=== PATIENT | female | born 1940 | race Caucasian/White ===

== ENCOUNTER 2017-08-12 00:47 | Emergency (ER) | payer MEDICARE ==
[2017-08-12] MEDS ORDERED: ORPHENADRINE CITRATE 30 MG/ML ML ONE (01:20)
[2017-08-12] MEDS ORDERED: MORPHINE SULFATE 8 MG/ML VIAL ONE (01:21)
[2017-08-12 01:43] LABS: BASOPHILS % (AUTO) 0.6 % (0.0-5.0); EOSINOPHILS % (AUTO) 1.9 % (0.0-8.0); HEMATOCRIT 37.4 % (36-48); LYMPHOCYTES % (AUTO) 49.1 % (21.0-51.0); MEAN CORPUSCULAR HEMOGLOBIN 27.7 pg (27.0-33.0); MEAN CORPUSCULAR HGB CONC 34.1 g/dL (32.0-36.0); MEAN CORPUSCULAR VOLUME 81.3 fL (79-99); MONOCYTES % (AUTO) 5.5 % (3.0-13.0); NEUTROPHILS % (AUTO) 42.9 % (40.0-77.0); PLATELET COUNT (AUTO) 219 K/uL (130-400); RED CELL DISTRIBUTION WIDTH 13.6 % (11.0-15.5); WHITE BLOOD COUNT (AUTO) 8.5 K/uL (4.8-10.8)
[2017-08-12 01:52] LABS: CREATININE 1.5 mg/dL (0.5-1.5); POTASSIUM 3.5 mmol/L (3.5-5.1)
[2017-08-12 01:57] LABS: ALBUMIN 3.6 g/dL (3.5-5.0); BILIRUBIN,TOTAL 0.3 mg/dL (0.2-1.0)
[2017-08-12 02:26] LABS: APPEARANCE,URINE Cloudy (CLEAR); BILIRUBIN,URINE Negative (NEGATIVE); COLOR,URINE Yellow (YELLOW); GLUCOSE, URINE (UA) Negative (NEGATIVE); KETONES,URINE Negative (NEGATIVE); LEUKOCYTE ESTERASE ,URINE Large (NEGATIVE); NITRATE,URINE Negative (NEGATIVE); OCCULT BLOOD,URINE Nonhemolyzed Trace (NEGATIVE); PH,URINE 6.5 (5.0-8.0); PROTEIN,URINE Trace (NEGATIVE)
[2017-08-12 02:51] LABS: BACTERIA,URINE Many /HPF (None Seen); SQUAMOUS EPITHELIAL CELL,UR Few /LPF (0-2); WBC,URINE 51-100 /HPF (0-1)
[2017-08-12 02:52] LABS: AMORPHOUS SEDIMENT,UR Few /LPF (None Seen)
[2017-08-12] MEDS ORDERED: CLARITHROMYCIN 500 MG TABLET ONE (03:14)
== END 2017-08-12 04:28 | disposition home or self-care (01) ==
LOC: EDH 00:47
DX: N30.00 Acute cystitis without hematuria (principal); M54.16 Radiculopathy, lumbar region; I10 Essential (primary) hypertension; Z88.0 Allergy status to penicillin; Z88.6 Allergy status to analgesic agent
CPT/HCPCS: 36415; 74176; 80053; 81001; 85025; 87088; 87186; 96372 ×2; 99285; J2270; J2360

== ENCOUNTER 2019-05-06 17:26 | Emergency (ER) | payer MEDICARE ==
[2019-05-06] MEDS ORDERED: ASPIRIN 325 MG TABLET ONE (18:37)
[2019-05-06 18:45] LABS: BASOPHILS % (AUTO) 0.9 % (0.0-5.0); EOSINOPHILS % (AUTO) 0.8 % (0.0-8.0); HEMATOCRIT 37.9 % (36-48); LYMPHOCYTES % (AUTO) 27.9 % (21.0-51.0); MEAN CORPUSCULAR HEMOGLOBIN 28.9 pg (27.0-33.0); MEAN CORPUSCULAR HGB CONC 34.8 g/dL (32.0-36.0); MEAN CORPUSCULAR VOLUME 82.9 fL (79-99); MONOCYTES % (AUTO) 8.8 % (3.0-13.0); NEUTROPHILS % (AUTO) 61.6 % (40.0-77.0); PLATELET COUNT (AUTO) 282 K/uL (130-400); RED BLOOD CELL COUNT(AUTO) 4.57 MIL/uL (4.00-5.50); RED CELL DISTRIBUTION WIDTH 13.7 % (11.0-15.5); WHITE BLOOD COUNT (AUTO) 9.1 K/uL (4.8-10.8)
[2019-05-06 18:55] LABS: POTASSIUM 3.2 mmol/L (3.5-5.1)
[2019-05-06 18:57] LABS: INR 0.91 (0.85-1.15); PARTIAL THROMBOPLASTIN TIME 24.5 SEC (26.3-35.5); PROTHROMBIN TIME 9.6 SEC (9.6-11.6)
[2019-05-06 19:00] LABS: ALBUMIN 3.8 g/dL (3.5-5.0); BILIRUBIN,TOTAL 0.6 mg/dL (0.2-1.0); TOTAL PROTEIN, SERUM 7.1 g/dL (6.0-8.3)
[2019-05-06 19:01] LABS: B-TYPE NATRIURETIC PEPTIDE 78 pg/mL (0-100)
== END 2019-05-06 22:30 | disposition home or self-care (01) ==
LOC: EDH 17:26
DX: R07.89 Other chest pain (principal); R06.02 Shortness of breath; I10 Essential (primary) hypertension; Z88.0 Allergy status to penicillin; Z88.8 Allergy status to other drugs, medicaments and biological substances
CPT/HCPCS: 36415; 71045; 80053; 82550; 83880; 84484; 85025; 85378; 85610; 85730; 93005

== ENCOUNTER → 2020-10-23 | Outpatient (CLI) | payer MEDICARE ==
[~2020-10-23] VITALS: Ht 160 cm; Wt 64.0 kg
[~2020-10-23] MED LIST: AMLO-258 PO; ASPI-556 PO; CELE200C PO; FURO20TA4 PO; LOSA1TAB42 PO; PRAV40TA3 PO; REGADENOSON 0.4 MG/5 ML PF SYG IVP SCH
== END | disposition home or self-care (01) ==
LOC: SHCH 08:00
PROVIDERS: ATTEND Internal Medicine Cardiovascular Disease
DX: I25.10 Atherosclerotic heart disease of native coronary artery without angina pectoris (principal)
CPT/HCPCS: 78452; 93017; 96374; A9500 ×2

== ENCOUNTER → 2023-05-01 | Outpatient (CLI) | payer OTHER ==
[~2023-05-01] MED LIST changes: -REGADENOSON 0.4 MG/5 ML PF SYG IVP SCH
== END | disposition home or self-care (01) ==
LOC: RAH 13:41
PROVIDERS: ATTEND Internal Medicine Cardiovascular Disease
DX: Z13.6 Encounter for screening for cardiovascular disorders (principal)
CPT/HCPCS: 75571

== ENCOUNTER → 2023-05-21 | Outpatient (CLI) | payer MEDICARE | END | disposition home or self-care (01) | LOC: SHCH 14:33 | PROVIDERS: ATTEND Internal Medicine Cardiovascular Disease | DX: I08.1 Rheumatic disorders of both mitral and tricuspid valves (principal); R06.00 Dyspnea, unspecified; I10 Essential (primary) hypertension; E78.5 Hyperlipidemia, unspecified; I27.20 Pulmonary hypertension, unspecified | CPT/HCPCS: 93306 ==

== ENCOUNTER 2023-08-08 07:13 | Observation (INO) | payer MEDICARE ==
[2023-08-06 12:20] VITALS: BP 166/96; PULSE 63; RESP 16
[2023-08-06 12:27] LABS: BASOPHILS # (AUTO) 0.06 K/uL (0.00-0.20); BASOPHILS % (AUTO) 0.7 % (0.0-5.0); EOSINOPHILS % (AUTO) 2.2 % (0.0-8.0); HEMATOCRIT 38.9 % (36-48); IMMATURE GRANULOCYTE ABSOLUTE 0.02 K/uL (0-1); LYMPHOCYTES # (AUTO) 3.5 K/uL (1.0-4.8); LYMPHOCYTES % (AUTO) 38.7 % (21.0-51.0); MEAN CORPUSCULAR HEMOGLOBIN 28.7 pg (27.0-33.0); MEAN CORPUSCULAR HGB CONC 34.2 g/dL (32.0-36.0); MEAN CORPUSCULAR VOLUME 83.8 fL (79-99); MONOCYTES # (AUTO) 0.6 K/uL (0.1-1.0); NEUTROPHILS # (AUTO) 4.6 K/uL (1.8-7.7); NEUTROPHILS % (AUTO) 51.2 % (40.0-77.0); PLATELET COUNT (AUTO) 328 K/uL (130-400); RED BLOOD CELL COUNT(AUTO) 4.64 MIL/uL (4.00-5.50); RED CELL DISTRIBUTION WIDTH 13.1 % (11.0-15.5)
[2023-08-06 12:36] LABS: APPEARANCE,URINE CLEAR (CLEAR); BILIRUBIN,URINE NEGATIVE (NEGATIVE); COLOR,URINE COLORLESS (YELLOW); GLUCOSE, URINE (UA) NEGATIVE (NEGATIVE); KETONES,URINE NEGATIVE (NEGATIVE); LEUKOCYTE ESTERASE ,URINE NEGATIVE Leu/uL (NEGATIVE); NITRATE,URINE NEGATIVE (NEGATIVE); OCCULT BLOOD,URINE NEGATIVE (NEGATIVE); PROTEIN,URINE NEGATIVE (NEGATIVE); UROBILINOGEN,URINE 0.2 mg/dL (0.2-1.0)
[2023-08-06 12:38] LABS: POTASSIUM 4.1 mmol/L (3.5-5.1)
[2023-08-06 12:48] LABS: ADD UA MICROSCOPIC NO
[2023-08-06 12:55] LABS: B-TYPE NATRIURETIC PEPTIDE 75 pg/mL (0-100)
[2023-08-06 13:15] LABS: INR < 0.93 (0.85-1.15); PROTHROMBIN TIME 10.2 SEC (9.6-11.6)
[2023-08-06 13:16] LABS: PARTIAL THROMBOPLASTIN TIME 27.2 SEC (26.3-35.5)
[~2023-08-08] VITALS: Ht 157.5 cm; Wt 59.0 kg
[2023-08-08] VITALS (17 sets, daily range): BP systolic 88–146; BP diastolic 39–87; PULSE 55–78; RESP 12–20; O2SAT 97–99
[~2023-08-08 07:13] MED LIST changes: -CELE200C PO; +CYAN250014 PO; +DEXL30CA3 PO; -FURO20TA4 PO; +NITR0.4T50 SL; +POTASSIUM PO; +TRAM50TA4 PO; +VIT1CAPS47 PO; +VITAMIN D3 PO
[2023-08-08] MEDS ORDERED: DEXL60CA3 PO (08:33)
[2023-08-08] MEDS ORDERED: METO-408 PO (08:38)
[2023-08-08] MEDS ORDERED: 0.9%NACL 1000ML 1,000 ML IV ONE (08:41)
[2023-08-08] MEDS ORDERED: IOHEXOL 350 MG/ML 100ML INFUS..BTL IV ONE (10:07)
[2023-08-08] MEDS ORDERED: LIDOCAINE HCL 400MG/20ML VIAL ONE (10:07)
[2023-08-08] MEDS ORDERED: IOHEXOL-350 50ML VIAL IV ONE (10:07)
[2023-08-08] MEDS ORDERED: MIDAZOLAM HCL 1 MG/ML 2ML VIAL ONE (10:30)
[2023-08-08] MEDS ORDERED: HEPARIN 10,000 UNIT/10ML (1,000 UNIT/ML) VIAL ONE (10:41)
[2023-08-08] MEDS ORDERED: ASPIRIN 325MG EC TAB PO ONE (10:59)
[2023-08-08] MEDS ORDERED: CLOPIDOGREL 300MG TAB ONE (10:59)
[2023-08-08] MEDS ORDERED: TEMAZEPAM 30 MG CAP PO PRN (11:30)
[2023-08-08] MEDS ORDERED: ONDANSETRON 4MG INJ IVP PRN (11:30)
[2023-08-08] MEDS ORDERED: NITROGLYCERIN 50MG/D5W 250ML 1 BOT IV PRN (11:30)
[2023-08-08] MEDS ORDERED: ONDANSETRON 4MG INJ IVP SCH (11:30)
[2023-08-08] MEDS ORDERED: MORPHINE 5 MG/ML VIAL (5MG OR GREATER DOSE) IVP SCH (11:30)
[2023-08-09 04:00] VITALS: BP 141/68; PULSE 69; RESP 20
[2023-08-09 06:06] LABS: HEMATOCRIT 36.1 % (36-48); MEAN CORPUSCULAR HGB CONC 34.6 g/dL (32.0-36.0); MEAN CORPUSCULAR VOLUME 80.9 fL (79-99); RED BLOOD CELL COUNT(AUTO) 4.46 MIL/uL (4.00-5.50); RED CELL DISTRIBUTION WIDTH 12.9 % (11.0-15.5); WHITE BLOOD COUNT (AUTO) 7.7 K/uL (4.8-10.8)
[2023-08-09 06:21] LABS: POTASSIUM 3.8 mmol/L (3.5-5.1)
[2023-08-09 08:30] VITALS: O2SAT 98
[2023-08-09 08:35] VITALS: BP 133/63; PULSE 80; RESP 18
[2023-08-09] MEDS ORDERED: PANTOPRAZOLE 40 MG TAB DR PO SCH (09:00)
[2023-08-09] MEDS ORDERED: CLOPIDOGREL 75MG TAB PO SCH (09:00)
[2023-08-09] MEDS ORDERED: ASPIRIN 81MG CHEW TAB PO SCH (09:00)
[2023-08-09] MEDS ORDERED: CLOP75TA32 PO (11:00)
== END 2023-08-09 12:11 | disposition home or self-care (01) ==
LOC: DAH 07:13 → DAHIP 07:14 → 2AH 12:35
PROVIDERS: ADMIT Internal Medicine Cardiovascular Disease; ATTEND Internal Medicine Cardiovascular Disease
DX: I25.112 Atherosclerotic heart disease of native coronary artery with refractory angina pectoris (principal); I12.9 Hypertensive chronic kidney disease with stage 1 through stage 4 chronic kidney disease, or unspecified chronic kidney disease; N18.31 Chronic kidney disease, stage 3a; I77.9 Disorder of arteries and arterioles, unspecified; I47.10 Supraventricular tachycardia, unspecified; E78.5 Hyperlipidemia, unspecified; Z79.82 Long term (current) use of aspirin; Z88.0 Allergy status to penicillin; Z88.5 Allergy status to narcotic agent
CPT/HCPCS: 80048 ×2; 83880; 85025; 85610; 85730 ×2; 81003; 36415 ×3; 71045; 93005 ×2; 93454; 80061; 85027; C1769; C1887; C1894; C1874; Q9965; G0378 ×24; J3490; J7030; J1644 ×2; J2250; Q9967; A4215 ×2; A4223 ×6; A4222 ×2; A4221 ×2; A4663 ×2; A4216 ×2; A4606 ×2; C9600; 99156; 99157

== ENCOUNTER 2023-10-11 16:03 | Inpatient (IN) | payer MEDICARE ==
[~2023-10-11] VITALS: Ht 157.5 cm; Wt 56.7 kg
[~2023-10-11 16:03] MED LIST changes: +CLOP75TA32 PO; -DEXL30CA3 PO; +DEXL60CA3 PO; +METO-408 PO
[2023-10-11 16:42] LABS: BASOPHILS # (AUTO) 0.03 K/uL (0.00-0.20); BASOPHILS % (AUTO) 0.4 % (0.0-5.0); EOSINOPHILS # (AUTO) 0.07 K/uL (0.00-0.70); EOSINOPHILS % (AUTO) 0.9 % (0.0-8.0); HEMATOCRIT 37.7 % (36-48); IMMATURE GRANULOCYTE ABSOLUTE 0.02 K/uL (0-1); LYMPHOCYTES # (AUTO) 2.2 K/uL (1.0-4.8); LYMPHOCYTES % (AUTO) 29.9 % (21.0-51.0); MEAN CORPUSCULAR HEMOGLOBIN 27.3 pg (27.0-33.0); MEAN CORPUSCULAR HGB CONC 35.5 g/dL (32.0-36.0); MEAN CORPUSCULAR VOLUME 76.9 fL (79-99); MONOCYTES # (AUTO) 0.5 K/uL (0.1-1.0); MONOCYTES % (AUTO) 6.9 % (3.0-13.0); NEUTROPHILS # (AUTO) 4.6 K/uL (1.8-7.7); NEUTROPHILS % (AUTO) 61.6 % (40.0-77.0); PLATELET COUNT (AUTO) 333 K/uL (130-400); RED CELL DISTRIBUTION WIDTH 12.7 % (11.0-15.5); WHITE BLOOD COUNT (AUTO) 7.4 K/uL (4.8-10.8)
[2023-10-11 16:51] LABS: CREATININE 1.1 mg/dL (0.5-1.5); POTASSIUM 3.2 mmol/L (3.5-5.1)
[2023-10-11 16:53] LABS: INR <= 0.93 (0.85-1.15); PROTHROMBIN TIME 10.4 SEC (9.6-11.6)
[2023-10-11 16:54] LABS: PARTIAL THROMBOPLASTIN TIME 27.9 SEC (26.3-35.5)
[2023-10-11 16:56] LABS: ALBUMIN 3.7 g/dL (3.5-5.0); BILIRUBIN,TOTAL 0.3 mg/dL (0.2-1.0); TOTAL PROTEIN, SERUM 7.1 g/dL (6.0-8.3)
[2023-10-11 17:13] LABS: B-TYPE NATRIURETIC PEPTIDE 83 pg/mL (0-100)
[2023-10-11] MEDS: HYDROXYZINE 25 MG TABLET PO ONE (18:04)
[2023-10-11] MEDS: NITROGLYCERIN 1GM OINT 1 INCH/1GM TD ONE (18:04)
[2023-10-11] MEDS: ENOXAPARIN SODIUM 60 MG/0.6 ML SQ ONE (18:04)
[2023-10-11 18:38] LABS: APPEARANCE,URINE CLEAR (CLEAR); BILIRUBIN,URINE NEGATIVE (NEGATIVE); COLOR,URINE LIGHT-YELLOW (YELLOW); GLUCOSE, URINE (UA) NEGATIVE (NEGATIVE); KETONES,URINE NEGATIVE (NEGATIVE); LEUKOCYTE ESTERASE ,URINE NEGATIVE Leu/uL (NEGATIVE); NITRATE,URINE NEGATIVE (NEGATIVE); OCCULT BLOOD,URINE NEGATIVE (NEGATIVE); PROTEIN,URINE NEGATIVE (NEGATIVE); UROBILINOGEN,URINE 0.2 mg/dL (0.2-1.0)
[2023-10-11 18:47] LABS: ADD UA MICROSCOPIC NO
[2023-10-11] MEDS ORDERED: HYDRALAZINE 20MG/ML VIAL IV PRN (19:00)
[2023-10-11 19:22] LABS: HEMOGLOBIN A1C 5.5 % (4.0-6.0)
[2023-10-11] MEDS: KCL 20 MEQ ERTAB PO ONE (19:45)
[2023-10-11] MEDS ORDERED: POTASSIUM CHLORIDE 20MEQ/100ML 100 ML IV PRN (20:30)
[2023-10-11] MEDS ORDERED: POTASSIUM CHLORIDE 10% ELIXIR 20 MEQ/15 ML UDCUP PO PRN (20:30)
[2023-10-11] MEDS ORDERED: IOHEXOL 350 MG/ML 100ML INFUS..BTL IV ONE (20:42)
[2023-10-11] MEDS: FAMOTIDINE 20MG VIAL IV SCH (21:56)
[2023-10-12] VITALS (8 sets, daily range): BP systolic 141–156; BP diastolic 54–72; PULSE 67–82; RESP 16–20; O2SAT 98–100
[2023-10-12 08:53] LABS: BASOPHILS # (AUTO) 0.03 K/uL (0.00-0.20); BASOPHILS % (AUTO) 0.4 % (0.0-5.0); EOSINOPHILS # (AUTO) 0.16 K/uL (0.00-0.70); EOSINOPHILS % (AUTO) 2.3 % (0.0-8.0); HEMATOCRIT 42.3 % (36-48); IMMATURE GRANULOCYTE ABSOLUTE 0.03 K/uL (0-1); MEAN CORPUSCULAR HEMOGLOBIN 27.4 pg (27.0-33.0); MEAN CORPUSCULAR HGB CONC 33.6 g/dL (32.0-36.0); MEAN CORPUSCULAR VOLUME 81.5 fL (79-99); MONOCYTES # (AUTO) 0.5 K/uL (0.1-1.0); MONOCYTES % (AUTO) 6.9 % (3.0-13.0); NEUTROPHILS # (AUTO) 3.3 K/uL (1.8-7.7); PLATELET COUNT (AUTO) 328 K/uL (130-400); RED BLOOD CELL COUNT(AUTO) 5.19 MIL/uL (4.00-5.50); RED CELL DISTRIBUTION WIDTH 13.1 % (11.0-15.5)
[2023-10-12] MEDS: ASPIRIN 81MG CHEW TAB PO SCH (09:00)
[2023-10-12] MEDS: CLOPIDOGREL 75MG TAB PO SCH (09:00)
[2023-10-12 09:15] LABS: CREATININE 0.9 mg/dL (0.5-1.5); POTASSIUM 4.4 mmol/L (3.5-5.1)
[2023-10-12] MEDS: ACETAMINOPHEN 500 MG TABLET PO PRN (12:00)
[2023-10-12] MEDS: KETOROLAC 15MG/ML VIAL (15MG/ML) IV ONE (13:06)
[2023-10-12] MEDS: MAG/ALUM/SIMETH 30 ML UDCUP PO ONE (13:06)
[2023-10-12] MEDS ORDERED: LOSA100T59 PO (18:27)
[2023-10-12] MEDS ORDERED: AMLO-258 PO (18:27)
[2023-10-12] MEDS: PANTOPRAZOLE 40 MG TAB DR PO SCH (20:32)
[2023-10-13] VITALS (7 sets, daily range): BP systolic 120–173; BP diastolic 55–78; PULSE 67–82; RESP 16–19; O2SAT 96–98
[2023-10-13] MEDS: KETOROLAC 15MG/ML VIAL (15MG/ML) IV ONE (04:02)
[2023-10-13 05:14] LABS: HEMATOCRIT 39.1 % (36-48); MEAN CORPUSCULAR HEMOGLOBIN 27.2 pg (27.0-33.0); MEAN CORPUSCULAR HGB CONC 34.5 g/dL (32.0-36.0); MEAN CORPUSCULAR VOLUME 78.8 fL (79-99); RED BLOOD CELL COUNT(AUTO) 4.96 MIL/uL (4.00-5.50); RED CELL DISTRIBUTION WIDTH 12.9 % (11.0-15.5); WHITE BLOOD COUNT (AUTO) 6.3 K/uL (4.8-10.8)
[2023-10-13 05:26] LABS: ALBUMIN 3.5 g/dL (3.5-5.0); BILIRUBIN,TOTAL 0.5 mg/dL (0.2-1.0); MAGNESIUM 1.8 mg/dL (1.80-2.40); POTASSIUM 3.6 mmol/L (3.5-5.1); TOTAL PROTEIN, SERUM 6.8 g/dL (6.0-8.3)
[2023-10-13] MEDS: KCL 20 MEQ ERTAB PO PRN (05:47)
[2023-10-13] MEDS: MAGNESIUM 2GM PREMIX 50ML 50 ML IV PRN (05:48)
[2023-10-13] MEDS: LOSARTAN 100 MG TABLET PO SCH (08:18)
[2023-10-13] MEDS: AMLODIPINE 5 MG TAB PO SCH (08:18)
[2023-10-13] MEDS: KETOROLAC 15MG/ML VIAL (15MG/ML) IV PRN (12:21)
[2023-10-13] MEDS: LIDOCAINE 5% TOPICAL PATCH TP ONE (12:25)
[2023-10-13] MEDS ORDERED: COMPOUND IV REFRIGERATED 1 EACH IVSOLN MISC PRN (13:00)
[2023-10-13] MEDS ORDERED: COMPOUND IV MISC 1 EACH IVSOLN MISC PRN (13:00)
[2023-10-13] MEDS: PANTOPRAZOLE 40MG INJ 80 MG in 0.9%NACL 100ML 100 ML IVP SCH (13:12)
[2023-10-14] VITALS (24 sets, daily range): BP systolic 115–171; BP diastolic 53–75; PULSE 60–82; RESP 15–18; O2SAT 94–99
[2023-10-14 05:58] LABS: BASOPHILS # (AUTO) 0.04 K/uL (0.00-0.20); BASOPHILS % (AUTO) 0.6 % (0.0-5.0); EOSINOPHILS # (AUTO) 0.13 K/uL (0.00-0.70); EOSINOPHILS % (AUTO) 2.1 % (0.0-8.0); HEMATOCRIT 41.1 % (36-48); IMMATURE GRANULOCYTE ABSOLUTE 0.04 K/uL (0-1); LYMPHOCYTES # (AUTO) 2.6 K/uL (1.0-4.8); LYMPHOCYTES % (AUTO) 40.9 % (21.0-51.0); MEAN CORPUSCULAR HEMOGLOBIN 27.2 pg (27.0-33.0); MEAN CORPUSCULAR HGB CONC 33.6 g/dL (32.0-36.0); MEAN CORPUSCULAR VOLUME 80.9 fL (79-99); MONOCYTES # (AUTO) 0.5 K/uL (0.1-1.0); MONOCYTES % (AUTO) 8.2 % (3.0-13.0); NEUTROPHILS % (AUTO) 47.6 % (40.0-77.0); PLATELET COUNT (AUTO) 301 K/uL (130-400); RED BLOOD CELL COUNT(AUTO) 5.08 MIL/uL (4.00-5.50); WHITE BLOOD COUNT (AUTO) 6.3 K/uL (4.8-10.8)
[2023-10-14 06:14] LABS: ALBUMIN 3.4 g/dL (3.5-5.0); BILIRUBIN,TOTAL 0.6 mg/dL (0.2-1.0); MAGNESIUM 2.1 mg/dL (1.80-2.40); POTASSIUM 4.2 mmol/L (3.5-5.1); TOTAL PROTEIN, SERUM 6.6 g/dL (6.0-8.3)
[2023-10-14] MEDS: LIDOCAINE 4% ADH..PATCH TP SCH (09:25)
[2023-10-14] MEDS ORDERED: PROPOFOL 10 MG/ML 20ML VIAL IV ONE (14:22)
[2023-10-14] MEDS ORDERED: FENTANYL CITRATE PF 50 MCG/1 ML 2ML VIAL ONE (14:22)
[2023-10-14] MEDS ORDERED: ONDANSETRON 4MG INJ ONE (14:22)
[2023-10-15] VITALS: BP 149/63; PULSE 66; RESP 16
[2023-10-15 04:00] VITALS: BP 154/59; PULSE 67; RESP 16
[2023-10-15 05:54] LABS: BASOPHILS # (AUTO) 0.04 K/uL (0.00-0.20); BASOPHILS % (AUTO) 0.5 % (0.0-5.0); EOSINOPHILS # (AUTO) 0.14 K/uL (0.00-0.70); EOSINOPHILS % (AUTO) 1.8 % (0.0-8.0); HEMATOCRIT 36.3 % (36-48); IMMATURE GRANULOCYTE ABSOLUTE 0.02 K/uL (0-1); LYMPHOCYTES # (AUTO) 3.4 K/uL (1.0-4.8); LYMPHOCYTES % (AUTO) 44.1 % (21.0-51.0); MEAN CORPUSCULAR HEMOGLOBIN 26.8 pg (27.0-33.0); MEAN CORPUSCULAR HGB CONC 34.4 g/dL (32.0-36.0); MEAN CORPUSCULAR VOLUME 77.9 fL (79-99); MONOCYTES # (AUTO) 0.5 K/uL (0.1-1.0); MONOCYTES % (AUTO) 6.8 % (3.0-13.0); NEUTROPHILS # (AUTO) 3.6 K/uL (1.8-7.7); NEUTROPHILS % (AUTO) 46.5 % (40.0-77.0); PLATELET COUNT (AUTO) 299 K/uL (130-400); RED BLOOD CELL COUNT(AUTO) 4.66 MIL/uL (4.00-5.50); WHITE BLOOD COUNT (AUTO) 7.7 K/uL (4.8-10.8)
[2023-10-15 06:13] LABS: ALBUMIN 3.3 g/dL (3.5-5.0); BILIRUBIN,TOTAL 0.6 mg/dL (0.2-1.0); POTASSIUM 4.1 mmol/L (3.5-5.1); TOTAL PROTEIN, SERUM 6.4 g/dL (6.0-8.3)
[2023-10-15 08:00] VITALS: BP 162/66; PULSE 64; RESP 18; O2SAT 99
[2023-10-15 11:00] VITALS: BP 158/67; PULSE 72; RESP 18
== END 2023-10-15 11:44 | disposition home or self-care (01) | DRG 392 ==
LOC: EDH 16:03 → EDHIP 18:54 → 2DH 10-12 02:10 → 3CH 10-13 04:23
PROVIDERS: ADMIT Internal Medicine; ATTEND Internal Medicine
PROC: 0DJ08ZZ Inspection of Upper Intestinal Tract, Via Natural or Artificial Opening Endoscopic (ICD-10-PCS; principal; 2023-10-14)
DX: K21.9 Gastro-esophageal reflux disease without esophagitis (principal); I25.119 Atherosclerotic heart disease of native coronary artery with unspecified angina pectoris; I11.0 Hypertensive heart disease with heart failure; I50.9 Heart failure, unspecified; Z96.611 Presence of right artificial shoulder joint; I27.20 Pulmonary hypertension, unspecified; I07.1 Rheumatic tricuspid insufficiency; E87.6 Hypokalemia; E78.5 Hyperlipidemia, unspecified; K44.9 Diaphragmatic hernia without obstruction or gangrene; Z86.16 Personal history of COVID-19; Z95.5 Presence of coronary angioplasty implant and graft
CPT/HCPCS: 36415; 43235; 71045; 71270; 80048; 80053; 81003; 82550; 83036; 83690; 83735; 83880; 84443; 84484; 85025; 85027; 85378; 85610; 85730; 93005; 93306; 93970; A4606; C9113; G0378; J1650; J1885; J2405; J2704; J3010; J3475; J3490; J7030; Q9967; A4215; A4221; A4222; A4223; A4620; A4663; A7002

== ENCOUNTER 2023-11-15 16:23 | Emergency (ER) | payer MEDICARE ==
[~2023-11-15] VITALS: Ht 157.5 cm; Wt 58.1 kg
[~2023-11-15 16:23] MED LIST changes: -ASPI-556 PO; +LOSA100T59 PO; -LOSA1TAB42 PO; -PRAV40TA3 PO
[2023-11-15 16:25] VITALS: BP 140/58; PULSE 79; RESP 20
== END 2023-11-15 19:07 | disposition left against medical advice (07) ==
LOC: EDH 16:23
DX: R07.89 Other chest pain (principal); Z53.21 Procedure and treatment not carried out due to patient leaving prior to being seen by health care provider
CPT/HCPCS: 93005; 99281

== ENCOUNTER 2024-02-19 08:44 | Observation (INO) | payer MEDICARE ==
[2024-02-18 15:33] LABS: BASOPHILS # (AUTO) 0.03 K/uL (0.00-0.20); BASOPHILS % (AUTO) 0.4 % (0.0-5.0); EOSINOPHILS # (AUTO) 0.04 K/uL (0.00-0.70); EOSINOPHILS % (AUTO) 0.5 % (0.0-8.0); IMMATURE GRANULOCYTE ABSOLUTE 0.02 K/uL (0-1); LYMPHOCYTES # (AUTO) 2.8 K/uL (1.0-4.8); LYMPHOCYTES % (AUTO) 33.1 % (21.0-51.0); MEAN CORPUSCULAR HEMOGLOBIN 28.3 pg (27.0-33.0); MEAN CORPUSCULAR HGB CONC 35.1 g/dL (32.0-36.0); MEAN CORPUSCULAR VOLUME 80.6 fL (79-99); MONOCYTES # (AUTO) 0.6 K/uL (0.1-1.0); MONOCYTES % (AUTO) 7.3 % (3.0-13.0); NEUTROPHILS # (AUTO) 4.9 K/uL (1.8-7.7); NEUTROPHILS % (AUTO) 58.5 % (40.0-77.0); PLATELET COUNT (AUTO) 318 K/uL (130-400); RED BLOOD CELL COUNT(AUTO) 4.84 MIL/uL (4.00-5.50); RED CELL DISTRIBUTION WIDTH 12.7 % (11.0-15.5); WHITE BLOOD COUNT (AUTO) 8.3 K/uL (4.8-10.8)
[2024-02-18 15:39] LABS: CREATININE 1.5 mg/dL (0.5-1.0); POTASSIUM 3.8 mmol/L (3.5-5.1)
[2024-02-18 15:55] VITALS: BP 188/89; PULSE 77; RESP 19
[~2024-02-19] VITALS: Ht 157.5 cm; Wt 58.3 kg
[2024-02-19] VITALS (23 sets, daily range): BP systolic 124–156; BP diastolic 50–82; PULSE 73–90; RESP 15–20
[~2024-02-19 08:44] MED LIST changes: -CLOP75TA32 PO; -CYAN250014 PO; -DEXL60CA3 PO; -LOSA100T59 PO; +LOSA1TAB54 PO; -METO-408 PO; -NITR0.4T50 SL; -POTASSIUM PO; -VIT1CAPS47 PO; -VITAMIN D3 PO
[2024-02-19] MEDS: CEFAZOLIN SODIUM 2 GM VIAL ONE (09:08)
[2024-02-19] MEDS: LACTATED RINGERS 1000ML 1,000 ML IV ONE (09:29)
[2024-02-19] MEDS ORDERED: BUPIVACAINE/PF 0.5% 30ML VIAL ONE (12:10)
[2024-02-19] MEDS: DIAZEPAM 5 MG TABLET ONE (13:11)
[2024-02-19] MEDS: DIAZEPAM 5 MG TABLET PO ONE (13:11)
[2024-02-19] MEDS ORDERED: MIDAZOLAM HCL 1 MG/ML 2ML VIAL ONE (15:13)
[2024-02-19] MEDS ORDERED: PROPOFOL 10 MG/ML 20ML VIAL IV ONE (15:13)
[2024-02-19] MEDS ORDERED: FENTANYL CITRATE PF 50 MCG/1 ML 2ML VIAL ONE ×2 (15:14→15:35)
[2024-02-19] MEDS ORDERED: ROCURONIUM BROMIDE 10MG/1ML 5ML VL ONE (15:14)
[2024-02-19] MEDS ORDERED: PHENYLEPHRINE HCL 10 MG/ML 1ML VIAL IV ONE (15:35)
[2024-02-19] MEDS ORDERED: ONDANSETRON 4MG INJ ONE (16:08)
[2024-02-19] MEDS: CEFAZOLIN SODIUM 2 GM VIAL IVPB ONE (16:40)
[2024-02-19] MEDS: BUPIVACAINE/PF 0.5% 30ML VIAL INJ ONE (16:59)
[2024-02-19] MEDS ORDERED: GLYCOPYRROLATE 0.2 MG/ML 5 ML VIAL ONE (17:53)
[2024-02-19] MEDS ORDERED: KETOROLAC 30MG VIAL (30MG/ML) ONE (17:53)
[2024-02-19] MEDS ORDERED: NEOSTIGMINE METHYLSULFATE 1MG/ML IV ONE (17:53)
[2024-02-19] MEDS: SUGAMMADEX SODIUM 200 MG/2 ML VIAL IV ONE (18:09)
[2024-02-19] MEDS ORDERED: HYDROCODONE/ACETAMINOPHEN 7.5/325 MG 15 ML UDCUP PO PRN (18:30)
[2024-02-19] MEDS ORDERED: ONDANSETRON 4MG INJ IVP PRN (18:30)
[2024-02-19] MEDS ORDERED: PROCHLORPERAZINE 10MG/2ML INJ IV PRN (18:30)
[2024-02-19] MEDS ORDERED: KETOROLAC 30MG VIAL (30MG/ML) IV PRN (18:30)
[2024-02-19] MEDS: LACTATED RINGERS 1000ML 1,000 ML IV SCH (18:30)
[2024-02-19] MEDS: ONDANSETRON 4MG INJ ONE (18:50)
[2024-02-19] MEDS: MEPERIDINE-PF 25 MG/ML SYG ONE ×2 (18:52→19:04)
[2024-02-19] MEDS: FAMOTIDINE 20MG VIAL IV SCH (20:33)
[2024-02-19] MEDS: HYDROMORPHONE 1 MG INJ IVP PRN (21:33)
[2024-02-20 03:41] VITALS: BP 112/50; PULSE 71; RESP 16
[2024-02-20 07:40] VITALS: BP 135/60; PULSE 75; RESP 16
[2024-02-20 08:30] VITALS: O2SAT 97
[2024-02-20] MEDS: ENOXAPARIN SODIUM 30 MG/0.3 ML SQ SCH (08:58)
[2024-02-20 11:12] VITALS: BP 136/61; PULSE 78; RESP 17
== END 2024-02-20 11:54 | disposition home or self-care (01) ==
LOC: DAH 08:44 → DAHIP 08:45 → DAH 08:45 → INTOOBSV 08:45 → 4BH 19:44
PROVIDERS: ADMIT Surgery; ATTEND Surgery
DX: K44.0 Diaphragmatic hernia with obstruction, without gangrene (principal); I25.10 Atherosclerotic heart disease of native coronary artery without angina pectoris; E78.5 Hyperlipidemia, unspecified; K21.9 Gastro-esophageal reflux disease without esophagitis; I12.9 Hypertensive chronic kidney disease with stage 1 through stage 4 chronic kidney disease, or unspecified chronic kidney disease; N18.9 Chronic kidney disease, unspecified; Z90.710 Acquired absence of both cervix and uterus; Z79.899 Other long term (current) drug therapy
CPT/HCPCS: 80048; 85025; 86850; 86900; 86901; 36415; 93005; 96374; 96375; 43282; 96376; 96372; 97161; 97116; G0378; A6260; A4663; J7120 ×2; A4215 ×2; J3490 ×4; J3010 ×2; J1170 ×3; J2250; J2704; J2405 ×2; J1885; J2710; J0665 ×2; J2175 ×2; J2371; J0690 ×2; G0168; C1781; A4930; A4223; A4222; A4221; J1650; 43235; G8980-CI; G8983-CI

== ENCOUNTER → 2024-09-02 | Outpatient (CLI) | payer MEDICARE ==
--- NOTE | 2024-09-02 13:32 | HMCSR ---
APPROVED REPORT Height: 5 ft 3in Weight: 144 lbs TEST INDICATIONS CAD The imaging protocol used to acquire images was Rest Tc-99m/stress Tc-99m 1 day Consent: The procedure was explained and understood by the patient. Informerd consent was witnessed Xuan Curtis RN First, low dose rest was performed then high dose stress. RESTING DATA: The resting ekg shows: NSR Rest SPECT myocardial perfusion imaging was performed in supine position 56 minutes following the int ravenous injection of 10.7 mCi of Tc-99 Sestamibi. Time of rest injection: 908 Date: 09/02/2024 Time of rest imagin Date: 09/02/2024 PHARMACOLOGIC STRESS: Pharmacologic stress test was performed by injecting regadenoson 0.4 mg IV push followed by the intra venous injection of 29.8 mCi of Tc-99 Sestamibi. Time of stress injection: 10:45: Date: 09/02/2024 Time of stress imagin:47: Date: 09/02/2024 Heart Rate at time of stress injection: 70 bpm. Gated Stress SPECT was performed 62 minutes after stress injection. The images were gated to evaluate regional wall motion and calculate left ventricular ejection fracti on. STRESS DETAILS Reason for Termination: Infusion complete Stress Symptoms: Chest Discomfort Max HR Achieved: 102 bpm % of APMHR Achieved: 74 Max Blood Pressure: 151/64 mmHg Stress ECG: NSR Conclusion No ischemia No infarct Breast shadow attenuation artifact noted LV ejection fraction greater than 70% Normal LV wall motion Small LV size at stress and rest No evidence of increased lung uptake
[2024-09-02] MEDS: REGADENOSON 0.4 MG/5 ML PF SYG IVP ONE (15:33)
== END | disposition home or self-care (01) ==
LOC: SHCH 08:49
PROVIDERS: ATTEND Internal Medicine Cardiovascular Disease
DX: R07.9 Chest pain, unspecified (principal); R06.00 Dyspnea, unspecified; I25.10 Atherosclerotic heart disease of native coronary artery without angina pectoris
CPT/HCPCS: 78452; 93017; J2785; A9500 ×2

== ENCOUNTER 2025-05-25 05:46 | Day surgery (SDC) | payer MEDICARE ==
[2025-05-24 12:01] LABS: APPEARANCE,URINE CLEAR (CLEAR); GLUCOSE, URINE (UA) NEGATIVE (NEGATIVE); LEUKOCYTE ESTERASE ,URINE NEGATIVE Leu/uL (NEGATIVE); NITRATE,URINE NEGATIVE (NEGATIVE); OCCULT BLOOD,URINE NEGATIVE (NEGATIVE)
[2025-05-24 12:03] LABS: IMMATURE GRANULOCYTE ABSOLUTE 0.02 K/uL (0-1); NUCLEATED RED BLOOD CELLS 0.0 % (0.0-0.19); PLATELET COUNT (AUTO) 274 K/uL (130-400); RED BLOOD CELL COUNT(AUTO) 4.85 MIL/uL (4.00-5.50); RED CELL DISTRIBUTION WIDTH 13.1 % (11.0-15.5); WHITE BLOOD COUNT (AUTO) 9.5 K/uL (4.8-10.8)
[2025-05-24 12:07] LABS: INR 0.97 (0.85-1.15)
[2025-05-24 12:07] LABS: ADD UA MICROSCOPIC NO
[2025-05-24 12:09] LABS: CREATININE 1.1 mg/dL (0.5-1.0); GLOMERULAR FILTR. RATE CALC 50.0 mL/min (>90); GLUCOSE,RANDOM 94.0 mg/dL (70-105); SODIUM SERUM 136.0 mmol/L (136-145); UREA NITROGEN, BLOOD 17.0 mg/dL (7-18)
[2025-05-24 12:16] VITALS: BP 149/61; PULSE 78; RESP 18; TEMP 98.4
--- NOTE | 2025-05-24 12:49 | HMCIMG ---
EXAM: CR Chest, 1 View. CLINICAL HISTORY: PRE OP COMPARISON: None provided. FINDINGS: LUNGS: There is no mass, infiltrate, or acute pulmonary abnormality. PLEURAL SPACES: No pleural effusion or pneumothorax. MEDIASTINUM: Cardiac size and mediastinal contours within normal limits. BONES: No aggressive appearing osseous lesion seen. Cervical hardware, and hardware within the proximal right humerus. IMPRESSION: 1. No acute cardiopulmonary findings. /[place]
--- NOTE | 2025-05-24 12:50 | EKG ---
[facility] Test Date: 2025-05-24 Test Time: 11:40:56 Pat Name: GUSTAVO JONAS Department: [facility] Room: Gender: F Survey Cad Technician: [id number] : 1940 Requested By: LEBRON ORTEGA Order Number: [id number] Reading MD: Lebron Ortega Measurements Intervals [place] Rate: 64 P: 48 CA: 154 QRS: 43 QRSD: 73 T: 39 QT: 393 QTc: 404 Interpretive Statements Sinus rhythm Compared to ECG 02/18/2024 15:24:51 No significant changes Electronically Signed On 05-24-2025 18:06:53 CDT by Lebron Ortega Please click the below link to view image of tracing.
[~2025-05-25] VITALS: Ht 157.5 cm; Wt 68.1 kg
[2025-05-25] VITALS (9 sets, daily range): BP systolic 122–135; BP diastolic 46–56; PULSE 60–72; RESP 14–16; TEMP 97.3–97.8
[~2025-05-25 05:46] MED LIST changes: +DEXL60CA3 PO; +METO-391 PO; +NITR0.4T50 SL; +OMEP1CAP4 PO; +PRAV40TA62 PO; -TRAM50TA4 PO
[2025-05-25] MEDS ORDERED: LIDOCAINE HCL 400MG/20ML VIAL ONE (07:08)
[2025-05-25] MEDS ORDERED: HEParin-NS 1,000 UNIT/500 ML 1,000 ML IV ONE (07:08)
[2025-05-25] MEDS ORDERED: IOHEXOL 350 MG/ML 100ML INFUS..BTL IV ONE (07:08)
[2025-05-25] MEDS ORDERED: IOHEXOL-350 50ML VIAL IV ONE (07:12)
[2025-05-25] MEDS ORDERED: MIDAZOLAM HCL 1 MG/ML 2ML VIAL ONE (07:27)
--- NOTE | 2025-05-25 08:15 | PRN ---
Cath Procedure Report CATH PROCEDURE REPORT CARDIAC CATHETERIZATION REPORT Date of Service: May 25, 2025 After informed consent the patient was prepped and draped in the usual fashion. She received a total of 15 cc of 2% xylocaine in the right inguinal area. She also received 1 mg of Versed for conscious sedation. A six Ni[place] sheath was introduced into the right femoral artery using modified Seldinger technique. A Cody four right six Niuean diagnostic catheter was advanced over guidewire to the aortic root. Wire was removed and catheter engaged into the bel[place] right coronary artery. The right coronary artery was visualized multiple planes the catheter was removed. A Cody four left six Niuean diagnostic catheter was advanced over guidewire to the aortic root. Wire was removed and catheter engaged into the left main coronary artery. The left coronary system was visualized multiple planes the catheter was removed. A pigtail catheter was then advanced over guidewire across the aortic valve. Wire was removed and hemodynamics measured. A pullback with continuous hemodynamic monitoring was performed and catheter was removed. A sheathogram performed and six Ni[place]an Angio-Seal closure device applied. The entire procedure was well tolerated without complications. Findings: The right coronary artery is a right-dominant vessel free of obstruction gives rise to normal PDA and posterolateral branches. The left main coronary artery is free of obstruction. The circumflex artery is a nondominant vessel free of obstruction gives rise to normal obtuse marginal branch. The LAD has a proximal stent which is widely patent. The remainder of the LAD is free of obstruction. The 1st diagonal artery arises from the stent and has a 70% ostial stenosis. This is a 1 mm diameter vessel. The 2nd diagonal artery is free of obstruction. Left ventricular end-diastolic pressure was normal and there was no aortic stenosis. Summary: Patent LAD stent 70% stenosis in the ostium of a small 1st diagonal artery. This is a 1 mm vessel and medical management advised. Report dictated by Lebron Ortega and LEBRON ORTEGA MD May 25, 2025 08:15
--- NOTE | 2025-05-25 13:00 | NUR ---
BOTH PT AND DAUGHTER GIVEN VERBAL AND WRITTEN DISCHARGE INSTRUCTIONS IV REMOVED SITE ASYMPTOMATIC. PT TAKEN OUT VIA WHEELCHAIR DAUGHTER DRIVING
== END 2025-05-25 13:05 | disposition home or self-care (01) ==
LOC: DAH 05:46
PROVIDERS: ATTEND Internal Medicine Cardiovascular Disease
DX: I25.112 Atherosclerotic heart disease of native coronary artery with refractory angina pectoris (principal); T82.855A Stenosis of coronary artery stent, initial encounter; E78.5 Hyperlipidemia, unspecified; I12.9 Hypertensive chronic kidney disease with stage 1 through stage 4 chronic kidney disease, or unspecified chronic kidney disease; N18.30 Chronic kidney disease, stage 3 unspecified; E11.22 Type 2 diabetes mellitus with diabetic chronic kidney disease; I34.0 Nonrheumatic mitral (valve) insufficiency; Z88.0 Allergy status to penicillin; Z88.5 Allergy status to narcotic agent; Z79.899 Other long term (current) drug therapy; Z98.890 Other specified postprocedural states; Y71.2 Prosthetic and other implants, materials and accessory cardiovascular devices associated with adverse incidents
CPT/HCPCS: 80048; 83880; 85025; 85610; 85730; 81003; 36415; 71045; 93005; 93458; 99156; 99157; C1894; C1760; J3490; J2250; J1644; Q9967; A4215; A4222; A4221; A4663; A4216; A4606; A4223 ×3